=== PATIENT | female | born 1965 | race Caucasian/White ===

== ENCOUNTER 2018-07-18 07:46 | Emergency (ER) | payer OTHER ==
[~2018-07-18] VITALS: Ht 160 cm; Wt 72.6 kg
[~2018-07-18 07:46] MED LIST: MAXALT10 MG
[2018-07-18] MEDS ORDERED: MIRALAX17 GM PO (12:30)
== END 2018-07-18 12:51 | disposition home or self-care (01) ==
LOC: ER 07:46
DX: K59.09 Other constipation (principal); R10.32 Left lower quadrant pain

== ENCOUNTER 2020-07-10 07:48 | Day surgery (SDC) | payer OTHER ==
[~2020-07-10 07:48] MED LIST changes: +MIRALAX17 GM PO
== END 2020-07-10 12:25 | disposition home or self-care (01) ==
LOC: AMB-ENDOS 07:48
PROVIDERS: ATTEND Colon & Rectal Surgery
DX: K62.89 Other specified diseases of anus and rectum (principal); K64.8 Other hemorrhoids; Z12.11 Encounter for screening for malignant neoplasm of colon; Z20.828 Contact with and (suspected) exposure to other viral communicable diseases